=== PATIENT | female | born 1960 | race Caucasian/White ===

== ENCOUNTER 2019-05-25 11:41 | Emergency (ER) | payer OTHER ==
[~2019-05-25] VITALS: Ht 167.6 cm; Wt 85.3 kg
[2019-05-25 11:46] VITALS: Ht 167.6 cm; Wt 85.3 kg
[2019-05-25 14:47] VITALS: BP 116/76
== END 2019-05-25 14:47 | disposition home or self-care (01) ==
LOC: ED 11:41
DX: S09.90XA Unspecified injury of head, initial encounter (principal); F41.9 Anxiety disorder, unspecified; F32.9 Major depressive disorder, single episode, unspecified; M79.7 Fibromyalgia; K91.5 Postcholecystectomy syndrome; Z98.890 Other specified postprocedural states; Z91.041 Radiographic dye allergy status; W18.09XA Striking against other object with subsequent fall, initial encounter; Y93.89 Activity, other specified; Y92.89 Other specified places as the place of occurrence of the external cause; Y99.8 Other external cause status
CPT/HCPCS: Q0162